=== PATIENT | female | born 1960 | race Caucasian/White ===

== ENCOUNTER 2022-04-18 14:09 | Outpatient (CLI) | payer OTHER, SELFPAY ==
[2022-04-18 11:18] LABS: Chloride* 101 mmol/L (96-114)
[2022-04-18 11:19] LABS: Albumin* 4.7 g/dL (3.3-5.0)
[2022-04-18 11:20] LABS: Sodium* 140 mmol/L (135-149)
[2022-04-18 11:22] LABS: Alkaline Phosphatase* 100 U/L (40-150); Aspartate Amino Transferase* 32 U/L (12-35); Bilirubin Total* 0.5 mg/dL (0.1-1.5); Blood Urea Nitrogen* 34 mg/dL (7-30); Carbon Dioxide* 27 mmol/L (20-32); Cholesterol* 212 mg/dL (90-199); Creatinine* 1.8 mg/dL (0.5-1.5); Estimated Glomerular Filt Rate 32 ml/min; Total Protein* 7.5 g/dL (6.0-8.3)
[2022-04-18 11:23] LABS: Alanine Aminotransferase* 46 U/L (4-35); Calcium* 9.3 mg/dL (8.4-10.6); Glucose* 200 mg/dL (60-115); HDL Cholesterol* 36 mg/dL (>=50); LDL Cholesterol Calculated 122 mg/dL (<100); Triglycerides* 269 mg/dL (40-149)
[2022-04-18 11:31] LABS: Microalbumin Urine 7 mg/dL
[2022-04-18 11:35] LABS: Creatinine Urine 201.7 mg/dL; Microalbumin Creatinine Ratio 30 mg/g (0-30)
[2022-04-18 12:32] LABS: Potassium* 5.5 mmol/L (3.6-5.1)
== END 2022-04-18 14:10 | disposition home or self-care (01) ==
PROVIDERS: Visit Provider Internal Medicine
DX: E11.9 Type 2 diabetes mellitus without complications (principal)
CPT/HCPCS: 80053; 80061; 82043; 82570

== ENCOUNTER 2022-06-14 08:20 | Outpatient (CLI) | payer OTHER, SELFPAY ==
[2022-06-14 09:50] LABS: Albumin* 4.4 g/dL (3.3-5.0); Chloride* 103 mmol/L (96-114); Potassium* 5.5 mmol/L (3.6-5.1); Sodium* 139 mmol/L (135-149)
[2022-06-14 09:53] LABS: Blood Urea Nitrogen* 30 mg/dL (7-30); Carbon Dioxide* 23 mmol/L (20-32); Creatinine* 1.5 mg/dL (0.5-1.5); Estimated Glomerular Filt Rate 39 ml/min; Glucose* 183 mg/dL (60-115)
[2022-06-14 09:54] LABS: Calcium* 9.3 mg/dL (8.4-10.6); Uric Acid* 6.6 mg/dL (2.2-8.4)
[2022-06-14 10:06] LABS: Creatinine Urine 94.8 mg/dL
[2022-06-14 10:10] LABS: Microalbumin Creatinine Ratio 40 mg/g (0-30); Microalbumin Urine 4 mg/dL
[2022-06-16 03:03] LABS: Iron* 94 ug/dL (37-170)
[2022-06-16 03:12] LABS: Percent Iron Saturation 27 % (20-50); Total Iron Binding Capacity 353 ug/dL (265-497)
[2022-06-16 03:38] LABS: Ferritin* 19.8 ng/mL (11.1-264.0)
== END 2022-06-14 08:21 | disposition home or self-care (01) ==
PROVIDERS: PCP Internal Medicine; Visit Provider Internal Medicine Nephrology
DX: E11.29 Type 2 diabetes mellitus with other diabetic kidney complication (principal); I10 Essential (primary) hypertension; N18.30 Chronic kidney disease, stage 3 unspecified; R80.9 Proteinuria, unspecified; E78.5 Hyperlipidemia, unspecified
CPT/HCPCS: 80069; 82043; 82310; 82570; 82728; 83540; 83550; 83970; 84550; 87086

== ENCOUNTER 2022-06-28 07:01 | Outpatient (CLI) | payer OTHER, SELFPAY ==
--- NOTE | 2022-06-28 08:48 | W.ANESCHARGE ---
Anesthesia Charges Start Date/Time Anesthesia Start Date: 06/28/22 Anesthesia Start Time: 08:05 Stop Date/Time Anesthesia Stop Date: 06/28/22 Anesthesia Stop Time: 08:45
--- NOTE | 2022-06-28 09:15 | W.ANESCHARGE ---
Anesthesia Charges Start Date/Time Anesthesia Start Date: 06/28/22 Anesthesia Start Time: 08:05 Stop Date/Time Anesthesia Stop Date: 06/28/22 Anesthesia Stop Time: 08:45
== END 2022-06-28 07:02 | disposition home or self-care (01) ==
LOC: OP CLINIC 07:02
PROVIDERS: PCP Internal Medicine; Visit Provider Surgery
DX: Z12.11 Encounter for screening for malignant neoplasm of colon (principal); K63.5 Polyp of colon; K57.30 Diverticulosis of large intestine without perforation or abscess without bleeding; Z86.010 Personal history of colon polyps
CPT/HCPCS: 00811; 45380; 45385; 88305; J2704

== ENCOUNTER 2022-07-19 09:04 | Outpatient (CLI) | payer OTHER, SELFPAY ==
--- NOTE | 2022-07-19 09:15 | CRLHL7_ITS ---
For Patients: As a result of the Century Cures Act, medical imaging exams and procedure reports are released immediately into your electronic medical record. You may view this report before your referring provider. If you have questions, please contact your health care provider. BILATERAL SCREENING MAMMOGRAM WITH COMPUTER-AIDED DETECTION AND TOMOSYNTHESIS TECHNIQUE: CC and MLO views were obtained. These mammographic images have been obtained using full-field digital technique. These mammographic images were interpreted with the benefit of computer-aided detection. Breast Tomosynthesis was used in this interpretation. COMPARISON FILM: 07/13/2021, 06/16/2020, 06/05/2019. FINDINGS: There are scattered areas of fibroglandular density IMPRESSION: There is no radiographic evidence for malignancy. ASSESSMENT: BI-RADS Category 1: Negative RECOMMENDATION: Routine screening mammogram in 1 year. A lay language report of this examination will be provided to the patient. Rubin Lui M.D. Diagnostic Radiologist [email or web address] MAYCO/dora Transcribed: 1:53 p.melissa john/Dictated by: Rubin Lui MD @ 07/19/2022 10:11:00 AM (Electronically Signed)
== END 2022-07-19 09:05 | disposition home or self-care (01) ==
LOC: MAMMO 09:05
PROVIDERS: PCP Internal Medicine; Visit Provider Internal Medicine
DX: Z12.31 Encounter for screening mammogram for malignant neoplasm of breast (principal)
CPT/HCPCS: 77063; 77067

== ENCOUNTER 2023-01-10 08:35 | Outpatient (CLI) | payer OTHER, SELFPAY | END 2023-01-10 08:36 | disposition home or self-care (01) | LOC: NFLDREF 01-12 12:45 | PROVIDERS: PCP Internal Medicine; Referring Provider Internal Medicine; Visit Provider Internal Medicine Nephrology | DX: E11.9 Type 2 diabetes mellitus without complications (principal); E78.5 Hyperlipidemia, unspecified; I10 Essential (primary) hypertension; N18.30 Chronic kidney disease, stage 3 unspecified; R80.9 Proteinuria, unspecified | CPT/HCPCS: 80061; 80069; 82043; 82570; 82728; 83540; 83550; 84450; 84460; 84550; 87086 ==

== ENCOUNTER 2023-01-17 08:56 | Outpatient (CLI) | payer OTHER, SELFPAY | END 2023-01-17 08:57 | disposition home or self-care (01) | PROVIDERS: PCP Internal Medicine; Visit Provider Internal Medicine Nephrology | DX: N18.30 Chronic kidney disease, stage 3 unspecified (principal) | CPT/HCPCS: 84443 ==

== ENCOUNTER 2023-03-22 13:00 | Outpatient (RCR) | payer OTHER, SELFPAY | END 2023-06-07 15:40 | disposition home or self-care (01) | PROVIDERS: PCP Internal Medicine; Visit Provider Family Medicine | DX: M76.60 Achilles tendinitis, unspecified leg (principal); Z51.89 Encounter for other specified aftercare | CPT/HCPCS: 97035; 97110; 97140; 97161 ==

== ENCOUNTER 2023-04-25 08:05 | Outpatient (CLI) | payer OTHER, SELFPAY | END 2023-04-25 08:06 | disposition home or self-care (01) | LOC: NFLDREF 13:11 | PROVIDERS: PCP Internal Medicine; Referring Provider Internal Medicine; Visit Provider Internal Medicine | DX: E11.9 Type 2 diabetes mellitus without complications (principal); N18.30 Chronic kidney disease, stage 3 unspecified; E78.5 Hyperlipidemia, unspecified | CPT/HCPCS: 80053; 80061 ==

== ENCOUNTER 2023-07-25 08:15 | Outpatient (CLI) | payer OTHER, SELFPAY | END 2023-07-25 08:16 | disposition home or self-care (01) | LOC: NFLDREF 08-07 07:15 | PROVIDERS: PCP Internal Medicine; Referring Provider Internal Medicine; Visit Provider Internal Medicine Nephrology | DX: E11.9 Type 2 diabetes mellitus without complications (principal); I10 Essential (primary) hypertension; N18.30 Chronic kidney disease, stage 3 unspecified; R80.9 Proteinuria, unspecified | CPT/HCPCS: 80069; 82043; 82570; 82728; 83540; 83550; 84550; 87086; 87186 ==

== ENCOUNTER 2023-07-25 08:27 | Outpatient (CLI) | payer OTHER, SELFPAY ==
--- NOTE | 2023-07-25 09:15 | MM_ITS ---
Patient: XOCHITL RHOADES Facility:?[facility] Patient ID:?[id number] Site Patient ID:?[id number]. Site :?[id number] Study:?XRay-Breast Bilateral 3D W/CAD-07/25/2023 8:57:09 AM Ordering Physician:Radha Dior Final Report: BILATERAL SCREENING MAMMOGRAM WITH COMPUTER-AIDED DETECTION AND TOMOSYNTHESIS TECHNIQUE: CC and MLO views were obtained. These mammographic images have been obtained using full-field digital technique. These mammographic images were interpreted with the benefit of computer-aided detection. Breast Tomosynthesis was used in this interpretation. COMPARISON FILM: 07/19/22, 07/13/21, 06/16/20. FINDINGS: There are scattered areas of fibroglandular density IMPRESSION: There is no radiographic evidence for malignancy. ASSESSMENT: BI-RADS Category 2: Benign RECOMMENDATION: Routine screening mammogram in 1 year. A lay language report of this examination will be provided to the patient. Rubin Lui M.D. Diagnostic Radiologist [email or web address] MAYCO/johnnie / be/Dictated by: Rubin Lui MD @ 07/25/2023 11:23:00 AM Signed by:?Rubin Lui MD @07/25/2023 4:21:08 PM (Electronic Signature)
== END 2023-07-25 08:28 | disposition home or self-care (01) ==
LOC: MAMMO 08:27
PROVIDERS: PCP Internal Medicine; Visit Provider Internal Medicine
DX: Z12.31 Encounter for screening mammogram for malignant neoplasm of breast (principal)
CPT/HCPCS: 77063; 77067

== ENCOUNTER 2023-09-26 08:35 | Outpatient (CLI) | payer OTHER, SELFPAY ==
--- OUTSIDE RECORDS SUMMARY | 2023-09-27 07:04 | XMS_ITS | Encounter Summary ---
Author Name Unknown Organization [facility] Address [address] [place] [address] Care Team Providers Care Assistant Principal Name Role Phone Unavailable Primary Care Provider Unavailabl e Reason for Visit * Appointment Request (Routine) - Closed Specialty Diagnoses / Procedures Referred By Mark griffith Referred To Contact Nephrology and Hypertension Referral ID Status Reason Start Date Expiration Date Visits Re quested Visits Authorized [id number] Closed 06/29/2023 06/28/2024 1 1 Encounter Details Date Type Department Care Team (Latest Contact Info) Description 07/31/2023 2:30 PM CDT External Outreach Division of Nephrology and Hypertension in [place], [place] [address] [place] [address] Shiva Ray Jr., D.O. [address] [place] [address] Chronic Kidney Disease (CKD), Stage 3b Glomerular Filtration Rate (GFR) 30 To 44 (HCC) (Primary Dx); Hypertension Secondary To Endocrine Disorders; Diabetes Mellitus Type 2 (HCC); Hyperaldosteronism Primary (HCC); Hyperkalemia Social History Tobacco Use Types Packs/Day Years Used Date Smoking Tobacco: Never Smokeless Tobacco: Never Humiliation, Afraid, Rape, and Kick questionnair e Answer Date Recorded Within the last year, have y ou been afraid of your partner or ex-partner? Patient declined 07/21/2021 Within the last year, have y ou been humiliated or emotionally abused in other ways by your partner or ex-partner? Patient declined 07/21/2021 Within the last year, have y ou been kicked, hit, slapped, or otherwise physically hurt by your partner or ex-partner? Patient declined 07/21/2021 Within the last year, have y ou been raped or forced to have any kind of sexual activity by your partner or ex-partner? Patient declined 07/21/2021 Social Connection and Isolat ion Panel [NHANES] Answer Date Recorded In a typical week, how many times do you talk on the phone with family, friends, or neighbors? Twice a week 07/21/2021 How often do you get togethe r with friends or relatives? Twice a week 07/21/2021 How often do you attend chur or yazdanism services? More than 4 times per year 07/21/2021 Do you belong to any clubs o r organizations such as rastafarian groups, unions, fraternal or athletic groups, or school groups? No 07/21/2021 How often do you attend meet ings of the clubs or organizations you belong to? Patient declined 07/21/2021 Are you , , di vorced, , never , or living with a partner? 07/21/2021 AUDIT-C Answer Date Recorded Q1: How often do you have a drink containing alc ohol? Never 07/21/2021 Average Number of Drinks Not on file 022 Frequency of Binge Drinking Not on file 01/2022 Overall Financial Resource Strain (CARDIA) Answe r Date Recorded How hard is it for you to pa y for the very basics like food, housing, medical care, and heating? Not hard at all 07/21/2021 [facility] of Occupat ional Health - Occupational Stress Questionnaire Answer Date Recorded Do you feel stress - tense, restless, nervous, or anxious, or unable to sleep at night because your mind is troubled all the time - these days? Not at all 07/21/2021 Exercise Vital Sign Answer Date Recorde d On average, how many days pe r week do you engage in moderate to strenuous exercise (like a brisk walk)? Patient declined On average, how many minutes do you engage in exercise at this level? Patient declined 07/21/2021 Hunger Vital Sign Answer Date Recorded Within the past 12 months, y ou worried that your food would run out before you got the money to buy more. Patient declined Within the past 12 months, t he food you bought just didn't last and you didn't have money to get more. Patient declined 01/2022 PRAPARE - Transportation Answer Date Re corded In the past 12 months, has l ack of transportation kept you from medical appointments or from getting medications? Patient declined 07/21/2021 In the past 12 months, has l ack of transportation kept you from meetings, work, or from getting things needed for daily living? Patient declined 07/21/2021 Housing Stability Vital Sign Answer Evans e Recorded In the last 12 months, was t here a time when you were not able to pay the mortgage or rent on time? No 07/21/2021 In the last 12 months, how many places have you lived? 1 07/21/2021 In the last 12 months, was t here a time when you did not have a steady place to sleep or slept in a care home (including now)? No 07/21/2021 Nutrition Answer Date Recorded Nutrition: EVOO Fat Source Yes 07/21 On average, how many serving s of fruits and vegetables do you eat per day (serving size is equal to 1 cup or approximately the size of a tennis ball)? 4-5 07/21/2021 Dental Answer Date Recorded Dental: Regular Dentist Yes 07/22/19 Employment Answer Date Recorded Employment status Employed and actively working without restrictions 07/21/2021 Education Answer Date Recorded What is the highest level of school you have completed or the highest degree you have received? Associate degree: occupational, technical, or vocational program 07/21/2021 Sex and Gender Information Value Date Recorded Sex Assigned at Female 07/21/2021 8:23 PM [employer]NAGER COUN[employer] Gender Identity Female 10/12/2017 1:06 PM CDT Sexual Orientation Straight 10/12/2017 1: 10 PM CDT documented as of this encounter Last Filed Vital Signs Vital Sign Reading Time Taken Comments Blood Pressure 136/78 07/31/2023 2:30 PM CDT Pulse 71 07/31/2023 2:30 PM CDT Temperature - - Respiratory Rate - - Oxygen Saturation - - Inhaled Oxygen Concentration - - Weight 94.5 kg (208 lb 5.4 oz) 07/31/2023 2:30 P M CDT Height 162.5 cm (5' 3.98) 07/31/2023 2:30 PM CD T Body Mass Index 35.79 07/31/2023 2:30 PM CDT documented in this encounter Progress Notes * Shiva Ray Jr., DDeandra - 07/31/2023 2:30 PM CDT Referring Provider: DR Hancock SUBJECTIVE REASON FOR VISIT [facility] Follow-up regards hyperaldosteronism with resistant hypertension, diabetes mellitus type 2 CKD stage 3B HISTORY OF PRESENT ILLNESS Ms. Ambrosio is a 63 y.o. female who presents with CKD stage IIIb on the background of resistant hypertension, secondary to hyperaldosteronism, always well as diabetes mellitus, with an abnormal microalbumin to creatinine ratio. She feels well although went through a very rough late winter time frame in May when she suffered with proven influenza A. She required corticosteroids. [facility] and has not been taking her Januvia. As result her hemoglobin A1c is up to 8.9%. She has a bit of numbness in her left foot on the sole of her foot, no visual changes, no urgency frequency dysuria. Her blood pressures at home have been excellent, on average in the 120s over 70s without orthostatic issues no lower extremity swelling. Her potassium has been normal she follows a low-potassium diet, we will utilize spironolactone to control her blood pressure. We had discussed in the past comprehensive endocrine workup including adrenal vein sampling and she is elected to hold off, and we have done well. Past Medical History: Diagnosis Date Diabetes Mellitus NOS Hypertension NOS Malignant Neoplasm Of Skin Squamous Cell Carcinoma Melanoma Skin (HCC) Current Outpatient Medications: albuterol (PROVENTIL HFA,VENTOLIN HFA) 90 mcg/actuation inhaler, Inhale 1 puff as needed., Disp: , Rfl: aspirin [address] tablet, Take 81 mg by mouth daily., Disp: , Rfl: CALCIUM ORAL, Take 2 tablets by mouth daily., Disp: , Rfl: cranberry fruit extract (CRANBERRY ORAL), Take 1 capsule by mouth daily., Disp: , Rfl: dilTIAZem CD (CARDIZEM CD) 240 mg 24 hr capsule, Take 1 capsule by mouth daily., Disp: , Rfl: losartan-hydroCHLOROthiazide (HYZAAR) 100-12.5 mg per tablet, , Disp: , Rfl: 0 metFORMIN (GLUCOPHAGE) 1,000 mg tablet, Take 1 tablet by mouth 2 (two) times a day., Disp: , Rfl: metoprolol succinate (TOPROL-XL) 25 mg 24 hr tablet, Take 1 tablet (25 mg total) by mouth daily., Disp: 90 tablet, Rfl: 3 MULTIVITAMIN ORAL, Take 1 tablet by mouth daily., Disp: , Rfl: predniSONE (DELTASONE) 20 mg tablet, TAKE 2 TABLETS BY MOUTH EVERY DAY FOR 5 DAYS THEN ONE TABLET FOR 5 DAYS THEN, ONE-HALF TABLET FOR 5 DAYS, Disp: , Rfl: 0 simvastatin (ZOCOR) 40 mg tablet, , Disp: , Rfl: 2 spironolactone (ALDACTONE) 25 mg tablet, , Disp: , Rfl: REVIEW OF SYSTEMS All other systems reviewed and are negative. OBJECTIVE BP 136/78 Pulse 71 Ht 162.5 cm Wt 94.5 kg BMI 35.79 kg/m?? PHYSICAL EXAMINATION General: Awake alert oriented HEENT: SHARON, EOMI, Mucous membranes moist, no oral lesions Neck: No Masses, No Bruits Lungs: Clear to ascultation Heart: Regular Rate and Rhythm, No ectopy Murmurs or rubs Abdomen: Soft, Non-tender Extremities: No cyanosis, No clubbing: No edema Neuro: Cranial Nerves intact, Gait is normal, strength grossly normal Skin: no suspicious lesions identified Psychiatric: Normal affect DIAGNOSTICS Note creatinine 1.5 mg/dL, microalbumin to creatinine ratio 50 milligrams/gram, hemoglobin A1c 8.9%normal CBC ASSESSMENT / PLAN #1 Chronic Kidney Disease (CKD), Stage 3b Glomerular Filtration Rate (GFR) 30 To 44 (HCC) She has been doing overall well, her blood pressure is excellent. If she is trending on average below 110 systolic we could begin to entertain cutting back on her antihypertensive regimen. I expect this will occur over time. Going forward: 1. Goal blood pressure less than 130/80-achieved 2. If her pressures are routinely below 110 systolic or she is symptomatic I would favor cutting back or stopping her diltiazem 3. We will continue her spironolactone 4. Low-sodium diet 5. Continue to stay as active as possible 6. Goal glycosylated hemoglobin level of 6.5-7.5%, she is dramatically above this level, perhaps onthe background of her corticosteroid use. #2 Hypertension Secondary To Endocrine Disorders Please see above, we will continue on spironolactone and combination Pepe diuretic therapy, along with beta blockade and calcium channel blockade. #3 Diabetes Mellitus Type 2 (HCC) She is well above target with a hemoglobin A1c that is likely impacted by her previous corticosteroid use and that she is currently using glipizide and metformin alone. She could be a candidate for a GLP 1 agonist, or perhaps an SG LT 2 inhibitor, but if her current insurance will not allow Januvia, this would be a challenge financially I suspect. #4 Hyperaldosteronism Primary (HCC) Please see above discussion #5 Hyperkalemia Stable with a potassium of 5.1 Total time: 35 minutes Counseling Time: 25 minutes Shiva Ray Jr., D.O. documented in this encounter Plan of Treatment Not on file documented as of this encounter Visit Diagnoses Diagnosis Chronic Kidney Disease (CKD), Stage 3b Glomerular Filtration Rate (GFR) 30 To 44 (HCC)- Primary Hypertension Secondary To Endocrine Disorders Diabetes Mellitus Type 2 (HCC) Hyperaldosteronism Primary (HCC) Hyperkalemia documented in this encounter
--- OUTSIDE RECORDS SUMMARY | 2023-09-27 07:04 | XMS_ITS | Encounter Summary ---
Author Name Unknown Organization [facility] Address [address] [place] [address] Care Team Providers Care Golf Teacher Name Role Phone Unavailable Primary Care Provider Unavailabl e Encounter Details Date Type Department Care Team (Late st Contact Info) Description 09/25/2023 2:35 PM CDT Ancillary Procedure Department of Dermatology Arrived Social History Tobacco Use Types Packs/Day Years Used Date Smoking Tobacco: Never Smokeless Tobacco: Never Alcohol Use Standard Drinks/Week Comments Not Currently 0 (1 standard drink = 0.6 oz pur e alcohol) [facility] Utilities Answer Date Recorded In the past [address] [facility] [employer], gas, oil, or water [employer] threatened to shut off services in your home? No 09/18/2023 Humiliation, Afraid, Rape, and Kick questionnair e [...] How often do you attend chur or uatsdin services? More than 4 times per year 07/21/2021 Do you belong to any clubs o r organizations such as oriental orthodox groups, unions, fraternal or athletic groups, or [...] and heating? Not hard at all 07/21/2021 [facility] of Occupat ional Health - Occupational Stress [...] to strenuous exercise (like a brisk walk)? 3 days 09/18/2023 On average, how many minutes do you engage in exercise at this level? 30 min 09/18/2023 Hunger Vital Sign Answer Date Recorded Within the past 12 months, y ou worried that your food would run out before you got the money to buy more. Patient declined Within the past 12 months, t he food you bought just didn't last and you didn't have money to get more. Patient declined 10/2023 PRAPARE - Transportation Answer Date Re corded In the past 12 months, has l ack of transportation kept you from medical appointments or from getting medications? Patient declined 09/18/2023 In the past 12 months, has l ack of transportation kept you from meetings, work, or from getting things needed for daily living? Patient declined 09/18/2023 Nutrition Answer Date Recorded On average, how many serving s of fruits and vegetables do you eat per day (serving size is equal to 1 cup or approximately the size of a tennis ball)? 5 or more 09/18/2023 Dental Answer Date Recorded Dental: Regular Dentist Yes 07/22/19 Employment Answer Date Recorded Employment status Employed and actively working without restrictions 09/18/2023 Housing Stability Answer Date Recorded What is your living situation today? I have a [facility] place to live 09/18/2023 Education Answer Date Recorded What is the highest level of school you have completed or the highest degree you have received? Associate degree: occupational, technical, or vocational program 07/21/2021 Sex and Gender Information Value Date Recorded Sex Assigned at Female 07/21/2021 8:23 PM [employer]OCK [employer] Gender Identity Female 10/12/2017 1:06 PM CDT Sexual Orientation Straight 10/12/2017 1: 10 PM CDT documented as of this encounter Plan of Treatment Not on file documented as of this encounter Procedures Procedure Name Priority Date/Time Associated Diagnosis Comments DERMATOLOGY IMAGE EXAM Routine 09/25/2023 2:28 PM CDT documented in this encounter Results * forehead, right 8-Dermatology Image Exam (09/25/2023 2:28 PM CDT) 09/25/2023 2:26 PM CDT Narrative [facility] - 09/25/2023 2:28 PM CDT This order has been created and auto-finalized to support the import of images acquired without order. The clinical documentation to support these images can be found on the encounter that produced images. Provider Not In System IMG NON RAD IMAGI NG PROCEDURES [facility] NA documented in this encounter Visit Diagnoses Not on filedocumented in this encounter
--- OUTSIDE RECORDS SUMMARY | 2023-09-27 07:04 | XMS_ITS | Encounter Summary ---
Author Name Unknown Organization [facility] Address [address] [place] [address] Care Team Providers Care Mattress Finisher Name Role Phone Unavailable Primary Care Provider Unavailabl e Encounter Details Date Type Department Care Team (Late st Contact Info) Description 09/25/2023 2:25 PM CDT Ancillary Procedure Department of Dermatology Arrived Social History Tobacco Use Types Packs/Day Years Used Date Smoking Tobacco: Never Smokeless Tobacco: Never Alcohol Use Standard Drinks/Week Comments Not Currently 0 (1 standard drink = 0.6 oz pur e alcohol) [facility] Utilities Answer Date Recorded In the past 12 months has [facility] [employer], gas, oil, or water [employer] threatened to shut off services in your [...] How often do you attend chur or pentecostal services? More than 4 times per year 07/21/2021 Do you belong to any clubs o r organizations such as orthodox groups, unions, fraternal or athletic groups, [...] and heating? Not hard at all 07/21/2021 [facility] Occupat ional Health - Occupational [...] your living situation today? I have a [facility] place to live 09/18/2023 Education Answer Date Recorded What is the highest level of school you have completed or the highest degree you have received? Associate degree: occupational, technical, or vocational program 07/21/2021 Sex and Gender Information Value Date Recorded Sex Assigned at Female 07/21/2021 8:23 PM [employer] LEADER Gender Identity Female 10/12/2017 1:06 PM CDT Sexual Orientation Straight 10/12/2017 1: 10 PM CDT documented as of this encounter Plan of Treatment Not on file documented as of this encounter Procedures Procedure Name Priority Date/Time Associated Diagnosis Comments DERMATOLOGY IMAGE EXAM Routine 09/25/2023 2:25 PM CDT documented in this encounter Results * Back, right 50 224 226 228-Dermatology Image Exam (09/25/2023 2:25 PM CDT) 09/25/2023 2:25 PM CDT Narrative [facility] - 09/25/2023 2:27 PM CDT This order has been created [...]
--- OUTSIDE RECORDS SUMMARY | 2023-09-27 07:04 | XMS_ITS | Clinical Summary ---
Author Name Unknown Organization [facility] Address [address] [place] [address] Care Team Providers Care Residential Program Manager Name Role Phone Unavailable Primary Care Provider Unavailabl e Source Comments Patient records contain information from all sites at [facility]. For routine questions regarding patient records, call [phone] during business hours, M-F 8:00 AM - 5:00 PM Central Time. Record requests for emergency care only can be directed to [phone] at any time.[facility] Allergies Active Allergy Reactions Criticality Noted Date Comments Amlodipine Edema (Reselect Reaction) 12/23/2009 Nifedipine Edema (Reselect Reaction) 12/23/2009 Medications Medication Sig Dispensed Refills Start Date End Date Status albuterol (PROVENTIL HFA,VENTOLIN HFA) 90 mcg/actuation inhaler Inhale 1 puff as needed. 12/23/2009 Active dilTIAZem CD (CARDIZEM CD) 240 mg 24 hr capsule Take 1 capsule by mouth daily. 12/24/2009 Active CALCIUM ORAL Take 2 tablets by mouth daily. 12/24/2009 Active cranberry fruit extract (CRANBERRY ORAL) Take 1 capsule by mouth daily. 12/24/2009 Active metFORMIN (GLUCOPHAGE) 1,000 mg tablet Take 1 tablet by mouth 2 (two) times a day. 12/23/2009 Active MULTIVITAMIN ORAL Take 1 tablet by mouth daily. 12/24/2009 Active losartan-hydroCHL OROthiazide (HYZAAR) 100-25 mg per tablet 1 tablet daily. 0 08/30/2017 Active spironolactone (ALDACTONE) 25 mg tablet 07/26/2017 Active metoprolol succinate (TOPROL-XL) 25 mg 24 hr tablet Take 1 tablet (25 mg total) by mouth daily. 90 tablet 3 06/11/2019 Active pravastatin (PRAVACHOL) 80 mg tablet Take 80 mg by mouth daily. Active loratadine (CLARITIN) 10 mg tablet Take 10 mg by mouth daily. Active glipiZIDE (GLUCOTROL) 10 mg tablet Take 10 mg by mouth every morning before breakfast. Active ferrous sulfate 27 mg iron tablet Take by mouth. Act fabiola aspirin [address] tablet Take 81 mg by mouth daily. 09/25/2023 Discontinued (Therapy completed) predniSONE (DELTASONE) 20 mg tablet TAKE 2 TABLETS BY MOUTH EVERY DAY FOR 5 DAYS THEN ONE TABLET FOR 5 DAYS THEN, ONE-HALF TABLET FOR 5 DAYS 0 08/10/2017 09/25/2023 Discontinued (Therapy completed) simvastatin (ZOCOR) 40 mg tablet 2 09/06/2017 09/25/2023 Discontinued (Alternate therapy) Active Problems Problem Noted Date Diagnosed Date Hyperkalemia 06/21/2022 Anemia Iron Deficiency 02/17/2021 Chronic Kidney Disease (CKD) , Stage 3b Glomerular Filtration Rate (GFR) 30 To 44 04/11/2018 Diabetes Mellitus Type 2 05/04/2016 Hyperaldosteronism Primary 05/05/2015 Resolved Problems Problem Noted Date Diagnosed Date Resolved Date Hypertension Secondary To Endocrine Disorders 09/20/19 18 07/31/2023 Elevated Aldosterone Level 05/05/2015 0 01/17/2023 Encounters Date Type Department Care Team Description 09/25/2023 2:35 PM CDT Ancillary Procedure Department of Dermatology Arrived 09/25/2023 2:30 PM CDT Ancillary Procedure Department of Dermatology Arrived 09/25/2023 2:25 PM CDT Ancillary Procedure Department of Dermatology Arrived 09/25/2023 1:45 PM CDT Office Visit Department of Dermatology in [address] [phone] Bela Owen M.D. Nevi Multiple (Primary Dx); Keratosis Seborrheic; Melanoma Personal History 07/31/2023 2:30 PM CDT External Outreach Division of Nephrology and Hypertension in [place] [address] [place] [address] Shiva Ray Jr., D.O. Chronic Kidney Disease (CKD), Stage 3b Glomerular Filtration Rate (GFR) 30 To 44 (HCC) (Primary Dx); Hypertension Secondary To Endocrine Disorders; Diabetes Mellitus Type 2 (HCC); Hyperaldosteronism Primary (HCC); Hyperkalemia from Last 3 Months Social History Tobacco Use Types Packs/Day Years Used Date Smoking Tobacco: Never Smokeless Tobacco: Never Tobacco Cessation:Counseling Given: Not Answered Alcohol Use Standard Drinks/Week Comments Not Currently 0 (1 standard drink = 0.6 oz pur e alcohol) [facility] [employer] Answer Date Recorded In the past 12 months has e [employer], gas, oil, or water [employer] threatened to shut off services in your [...] 07/21/2021 How often do you attend chur ch or holiness services? More than 4 times per year 07/21/2021 Do you belong to any clubs o r organizations such as christian groups, unions, fraternal or athletic groups, or [...] and heating? Not hard at all 07/21/2021 [facility] - Occupational Stress [...] your living situation today? [facility] 09/18/2023 Education Answer Date Recorded What is the highest level of school you have completed or the highest degree you have received? 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 Oxygen Saturation - - Inhaled Oxygen Concentration - - Weight 94.5 kg (208 lb 5.4 oz) 07/31/2023 2:30 PM CDT Height 162.5 cm (5' 3.98) 07/31/2023 2 :30 PM CDT Body Mass Index 35.79 07/31/2023 2:30 PM CDT Plan of Treatment Health Maintenance Due Date Last Done Comments CT Colonography 1961 Cologuard 1961 Creatinine Level (Kidney Fun ction Test) 1961 Diabetic Office Visit with F oot Exam 1961 Dilated Eye Exam 1961 FIT 1961 Hemoglobin A1C 1961 Hepatitis C Screening 1961 Lipid (Cholesterol) Screening 1961 Mammogram 1961 Potassium Level 1961 Sodium Level 1961 Urine Albumin 1961 Pneumococcal vaccine (0-64 y ears) (2 of 2 - PCV) 01/02/2019 01/02/2018, 02/11/2010 DTaP,Tdap,and Td Vaccines (2 - Td or Tdap) 02/15/2022 02/16/2012, 06/03/2002 Depression Screening (Annual PHQ-2) 05/15/2023 COVID-19 Vaccine ( - 2022-2 4 season) 2023 02/07/2023, 02/09/2022, 08/24/2021, Additional history exists Office Visit for Blood Press ure Check / Re-check 07/30/2024 07/31/2023 Colonoscopy 10/17/2026 10/17/2016 Colorectal Cancer Screening 10/17/2026 Hepatitis B Vaccines Completed 09/27/1999, 04/26/1999, 03/25/1999 Zoster Vaccines Completed 01/11/2019, 01/02/2018 Influenza Vaccine Completed 02/07/2023, , 02/10/2021, Additional history exists Medical Devices Implanted Type Area Sports Editor Device Identifier Shelf Expiration Date Model / Serial / Lot Knee Implant Knee Implant Right: Knee Procedures Procedure Name Priority Date/Time Associated Diagnosis Comments DERMATOLOGY IMAGE EXAM Routine 09/25/2023 2:28 PM CDT DERMATOLOGY IMAGE EXAM Routine 09/25/2023 2:28 PM CDT DERMATOLOGY IMAGE EXAM Routine 09/25/2023 2:25 PM CDT from Last 3 Months Results * forehead, right 8-Dermatology Image Exam (09/25/2023 2:28 PM CDT) Only the most recent of3 resultswithin the time period is included. 09/25/2023 2:26 PM CDT Narrative IIMS - 09/25/2023 2:28 PM CDT This order has been created and auto-finalized to support the import of images acquired without order. The clinical documentation to support these images can be found on the encounter that produced images. Provider Not In System IMG NON RAD IMAGI NG PROCEDURES IIMS NA from Last 3 Months
--- OUTSIDE RECORDS SUMMARY | 2023-09-27 07:04 | XMS_ITS | Clinical Summary ---
Author Name Unknown Organization [facility] Address [place], [place] [address] Care Team Providers Care Customer Engagement Manager Name Role Phone Radha Looney MD Primary Care Provider [phone] Allergies Active Allergy Reactions Criticality Noted Date Comments Nifedipine 11/01/2006 intolerance; pedal edema Amlodipine Edema 10/01/2008 Medications Medication Sig Dispensed Refills Start Date End Date Status MULTIVITAMIN TAB take 1 tablet by oral route once daily with food 0 08/04/2008 Active MICROLET LANCETIndications:Di abetes mellitus type II test 3 times daily 300 2 10/02/2008 Active CALCIUM 500 MG TAB 2 tablets daily 0 11/26/2008 A ctive ASPIRIN 325 MG TAB, DELAYED RELEASE Once daily 0 01/07/2009 Active metformin (GLUCOPHAGE) 1,000 mg tabletIndications:Di abetes mellitus type II Take 1 tablet by mouth 2 times daily with meals. 180 tablet 3 12/15/2009 Active metoprolol SR (TOPROL XL) 50 mg XL tabletIndications:Un specified essential hypertension Take 1 tablet by mouth once daily. 90 tablet 3 12/15/2009 Active simvastatin (ZOCOR) 20 mg tabletIndications:Mi xed hyperlipidemia Take 1 tablet by mouth at bedtime. 90 tablet 3 12/15/2009 Active albuterol (PROVENTIL; VENTOLIN) 90 mcg/Actuation inhalerIndications:M ild intermittent asthma Inhale 2 Puffs by mouth every 4 hours if needed for Wheezing. Please fill at patient's request. 1 Inhaler 1 12/15/2009 Active blood sugar diagnostic (ASCENSIA CONTOUR) stripIndications:Susu betes mellitus type II Dispense test strips covered by the patient insurance. Test one time per day. 1 Bottle 2 12/15/2009 Active vitamin D3-vitamin K2, MK4, 1,000-100 unit-mcg tab Take by mouth. 0 02/24/2016 Active meclizine (ANTIVERT) 25 mg tablet Take 1 tablet by mouth 3 times daily if needed. 0 02/24/2016 Active spironolactone (ALDACTONE) 25 mg tablet Take 1 tablet by mouth once daily. 0 02/24/2016 Active venlafaxine extended release (VENLAFAXINE XR, [facility],) 75 mg extended release tablet Take 1 tablet by mouth once daily with a meal. 0 02/24/2016 Active zolpidem (AMBIEN) 5 mg tablet Take 1 tablet by mouth at bedtime if needed for Sleep. 0 02/24/2016 Active losartan-hydrochloro thiazide (HYZAAR) 100-12.5 mg tablet Take 1 tablet by mouth once daily. 0 09/29/2016 Active polyethylene glycol-electrolyte (GOLYTELY) 236-22.74-6.74 -5.86 gram suspensionIndication s:Periumbilical abdominal pain Drink 3-7 quarts the day prior to colonoscopy (until no liquid or solid stool ) and 1 quart 6 hours prior to the colonoscopy 8000 mL 1 09/29/2016 Active pantoprazole (PROTONIX) 40 mg delayed-release tabletIndications:Dy sphagia, unspecified type,Gastroesophagea l reflux disease, esophagitis presence not specified,Chronic cough TAKE ONE TABLET BY MOUTH ONCE DAILY, TAKE 30-60 MINUTES BEFORE A MEAL/FOOD 90 tablet 3 04/24/2019 Active Active Problems Problem Noted Date Diagnosed Date Adenomatous polyp of transverse colon 10/20/2016 Overview: Colonoscopy 10/2016 polyp, additional biopsies normal, repeat in 5 years Gastroesophageal reflux disease without esophagi tis 04/05/2016 Overview: EGD 03/2016 normal, try pantoprazole Female stress incontinence 12/15/2009 Overview: Referred for Biofeedback 12/15/2009 Reportedly improved with therapy 07/06/2010 Routine general medical exam ination at a health care facility 12/15/2009 Melanoma of skin, site unspecified 09/24/2009 Overview: Left Arm; Wide Excision 10/13/2009 Dr Smith at [facility]. Onychomycosis 07/08/2009 Overview: Both big toenails involved: has not responded to Lamisil, special compounding Prescription, and she continues to use Tea Tree Oil. Hot flash 04/08/2009 Edema 10/01/2008 Diabetes mellitus type II 10/01/2008 Overview: a system change updated this record. This will not affect patient care or billing. This comment can be deleted. Unspecified hearing loss 10/01/2008 Overview: Left Mild intermittent asthma 10/01/2008 Unspecified essential hypertension 11/01/2006 Overview: Goal: <120/75 12/15/2009 Obesity, unspecified 11/01/2006 Hypopotassemia 11/01/2006 Mixed hyperlipidemia 11/01/2006 Immunizations Name Administration Dates Next Due Hepatitis A (Adult) 09/27/1999,03/25/1999 Hepatitis B (Adult) 09/27/1999,04/26/1999,1998 Influenza A (H1N1), Inactiva clifton (Age >=3 Years) 03/24/2009 Influenza, IIV3 (Age >=3 years) 02/05/2009,03/15 Td (Age >=7 Years) 06/03/2002 Family History * Patient is adopted Medical History Relation Name Comments Unknown Father Unknown Mother Relation Name Status Comments Father Mother Social History Tobacco Use Types Packs/Day Years Used Date Smoking Tobacco: Never Smokeless Tobacco: Never Tobacco Cessation:Counseling Given: Yes Alcohol Use Standard Drinks/Week Comments No 1.7 (1 standard drink = 0.6 oz p ure alcohol) Sex and Gender Information Value Date Recorded Sex Assigned at Not on file Gender Identity Not on file Sexual Orientation Straight 10/27/2021 2: 30 PM CDT Obstetrics History Para Term AB IAB SAB Ectopic Multiple Livin g Live Births 3 2 1 1 2 Date Outcome GA Total Labor Labor/2nd/3rd Weight Sex Delivery Anes PTL Helen A1 A5 Name Cl in Para Comments:Antoinette Para Comments:Prabhu SIDNEY Last Filed Vital Signs Vital Sign Reading Time Taken Comments Blood Pressure 127/85 09/29/2016 2:02 PM CDT Pulse 70 09/29/2016 2:02 PM CDT Temperature 36.8 ??C (98.2 ??F) 09/29/2016 2:02 PM CD T Respiratory Rate - - Oxygen Saturation 95% 09/29/2016 2:02 PM CDT Inhaled Oxygen Concentration - - Weight 104.7 kg (230 lb 14.4 oz) 09/29/2016 2:02 PM CDT Height 160.5 cm (5' 3.19) 09/29/2016 2:02 PM CD T Body Mass Index 40.66 09/29/2016 2:02 PM CDT Plan of Treatment Health Maintenance Due Date Last Done Comments Tdap 1972 Depression screening for age 12+ 1973 HIV for age 15-65 1976 Hepatitis C screening for age 18-79 1979 Pap test for age 21-65 1982 Mammogram for age 45-75 03/25/2010 03/25/20 09, 02/13/2008 (Completed outside of [facility]) Zoster (shingles) series for age 50+ (1 of 2) 2011 Tetanus booster 06/03/2012 06/03/2002 Lipids for age 45-75 12/09/2014 12/09/2009, 09/08/2009, 07/03/2009, Additional history exists BMI (ht and wt on same day) for age 18+ 09/29/2017 09/29/2016, 02/24/2016 Colonoscopy through age 75 10/17/202110/17, 10/17/2016, 10/17/2016 COVID-19 vaccine series (2022- season) 2023 Influenza for age 50-64 01/14/2024 03/24/20 09, 02/05/2009, 03/15/2008 Pneumococcal series for age 6-64 Aged Out No longer eligible based on patient's age to complete this topic Procedures Procedure Name Priority Date/Time Associated Diagnosis Comments COLONOSCOPY DIAGNOSTIC Routine 10/17/2016 12:00 AM CDT Periumbilical abdominal pain Abnormal CT of the abdomen Bloating LIPID PANEL W REFLEX MEASURED LDL Routine 12/09/2009 7:36 AM CDT HYPERLIPIDEMIA MIXED SCAN-MAMMOGRAPHY REPORT 03/25/2009 12:00 AM ANIMAL BOUNTY HUNTER from Last 3 Months or Most Recently Relevant to Health Maintenance Results * COLONOSCOPY DIAGNOSTIC (10/17/2016 12:00 AM CDT) Jeffery Burns MD GI PROCEDURE ORD * (ABNORMAL) LIPID PANEL W REFLEX MEASURED LDL (12/09/2009 7:36 AM CDT) CHOLESTEROL,TOTAL 155 110 - 199 mg/dL [facility] TRIGLYCERIDES 151(H) <150 mg/dL [facility] HDL CHOLESTEROL 42 >40 mg/dL [facility] CHOL/HDL RATIO 3.69 <4.51 [facility] LDL CHOLESTEROL 83 <131 mg/dL [facility] PATIENT STATUS Fasting [facility] Blood specimen (specimen) BLOOD SPECIMEN / Unknown 12/09/2009 7:36 AM CDT 12/09/2009 7:30 AM CDT Griish Lemus MD CHEMISTRY [facility] [address] [place] [address] * SCAN-MAMMOGRAPHY REPORT (03/25/2009 12:00 AM ANIMAL BOUNTY HUNTER) Anatomical Region Laterality Modality Other Narrative Procedure Note Scanner - 03/25/2009 12:00 AM ANIMAL BOUNTY HUNTER Scanner OTHER from Last 3 Months or Most Recently Relevant to Health Maintenance Care Teams Customer Engagement Manager Relationship Specialty Start Date End Date Radha Looney MD PCP - General Internal Medicine 04/26/11
--- OUTSIDE RECORDS SUMMARY | 2023-09-27 07:04 | XMS_ITS ---
Author Name Unknown Organization [facility] Address [address] [place] [address] Care Team Providers Care Delivery Table Operator Name Role Phone Unavailable Unavailable Unavailable Surgery Details Not on file Complications Check Surgery Details section. Procedure Estimated Blood Loss Check Surgery Details section. Procedure Findings Check Surgery Details section. Procedure Specimens Taken Check Surgery Details section.
--- OUTSIDE RECORDS SUMMARY | 2023-09-27 07:04 | XMS_ITS | Referral Summary ---
Author Name Unknown Organization [facility] Address [address] [place] [address] Care Team Providers Care Beater Boss Name Role Phone Unavailable Primary Care Provider Unavailabl e Source Comments Patient records contain information from all sites at [facility]. For routine questions regarding patient records, call [phone] during business hours, M-F 8:00 AM - 5:00 PM Central Time. Record requests for emergency care only can be directed to [phone] at any time.[facility] Encounters Date Type Department Care Team Description 09/25/2023 2:35 PM CDT Ancillary Procedure Department of Dermatology Arrived 09/25/2023 2:30 PM CDT Ancillary Procedure Department of Dermatology Arrived 09/25/2023 2:25 PM CDT Ancillary Procedure Department of Dermatology Arrived 09/25/2023 1:45 PM CDT Office Visit Department of Dermatology in [address] [phone] Bela Owen M.D. Nevi Multiple (Primary Dx); Keratosis Seborrheic; Melanoma Personal History 07/31/2023 2:30 PM CDT External Outreach Division of Nephrology and Hypertension in [place], [place] [address] [place] [address] Shiva Ray Jr., D.O. Chronic Kidney Disease (CKD), Stage 3b Glomerular Filtration Rate (GFR) 30 To 44 (HCC) (Primary Dx); Hypertension Secondary To Endocrine Disorders; Diabetes Mellitus Type 2 (HCC); Hyperaldosteronism Primary (HCC); Hyperkalemia from Last 3 Months Allergies Active Allergy Reactions Criticality Noted Date [...] 07/31/2023 Elevated Aldosterone Level 05/05/2015 0 01/17/2023 Social History Tobacco Use Types Packs/Day Years Used Date Smoking Tobacco: Never Smokeless Tobacco: Never Tobacco Cessation:Counseling Given: Not Answered Alcohol Use Standard Drinks/Week Comments Not Currently 0 (1 standard drink = 0.6 oz pur e alcohol) [facility] Utilities Answer Date Recorded In the past 12 months has e [employer], gas, oil, or water [employer] threatened to shut off services in your [...] often do you attend chur ch or scientology services? More than 4 times per year 07/21/2021 Do you belong to any clubs o r organizations such as bahai groups, unions, fraternal or athletic groups, or [...] and heating? Not hard at all 07/21/2021 [facility] - Occupational Stress [...] your living situation today? [facility] 09/18/2023 Education Answer Date Recorded What is the highest level of school you have completed or the highest degree you have received? 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
--- OUTSIDE RECORDS SUMMARY | 2023-09-27 07:04 | XMS_ITS | Encounter Summary ---
Author Name Unknown Organization [facility] Address [address] [place] [address] Care Team Providers Care Adjunct Professor Of [employer] History Name Role Phone Unavailable Primary Care Provider Unavailabl e Encounter Details Date Type Department Care Team (Late st Contact Info) Description 09/25/2023 2:30 PM CDT Ancillary Procedure Department of Dermatology Arrived Social History Tobacco Use Types Packs/Day Years Used Date Smoking Tobacco: Never Smokeless Tobacco: Never Alcohol Use Standard Drinks/Week Comments Not Currently 0 (1 standard drink = 0.6 oz pur e alcohol) [facility] Utilities Answer Date Recorded In the past 12 months has [facility] [employer], gas, oil, or water [employer] threatened to shut off services in your [...] any clubs o r organizations such as episcopalian groups, unions, fraternal or athletic groups, or [...] and heating? Not hard at all 07/21/2021 [facility] Occupat ional Health - Occupational [...] your living situation today? I have a [facility] place to live 09/18/2023 Education Answer Date Recorded What is the highest level of school you have completed or the highest degree you have received? 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
--- OUTSIDE RECORDS SUMMARY | 2023-09-27 07:04 | XMS_ITS | Encounter Summary ---
Author Name Unknown Organization [facility] Address [address] [place] [address] Care Team Providers Care Assembler Liquid Center Name Role Phone Unavailable Primary Care Provider Unavailabl e Reason for Referral * Outpatient (Routine) - Authorized Specialty Diagnoses / Procedures Referred By Mark griffith Referred To Contact Dermatology Bela Owen M.D. [address] [place] [address] [facility] Region Referral ID Status Reason Start Date Expiration Date V isits Requested Visits Authorized [id number] Authorized 09/25/2023 03/26/2025 1 1 Scheduling Instructions Recheck several nevi and alopecia consultation in 6 months. 45 minute visit Reason for Visit * Reason Comments Skin Check * Appointment Request (Routine) - Closed Specialty Diagnoses / Procedures Referred By Mark griffith Referred To Contact Dermatology Referral ID Status Reason Start Date Expiration Date Visits Re quested Visits Authorized [id number] Closed 03/30/2021 03/30/2022 1 1 Encounter Details Date Type Department Care Team ([facility] st Contact Info) Description 09/25/2023 1:45 PM CDT Office Visit Department of Dermatology in [address] [phone] Bela Owen M.D. [address] [place] [phone] Nevi Multiple (Primary Dx); Keratosis Seborrheic; Melanoma Personal History Social History Tobacco Use Types Packs/Day Years Used Date Smoking Tobacco: Never Smokeless Tobacco: Never Tobacco Cessation:Counseling Given: Not Answered Alcohol Use Standard Drinks/Week Comments Not Currently 0 (1 standard drink = 0.6 oz pur e alcohol) [facility] [employer] [place] Answer Date Recorded In the past 12 months has e [employer], [employer], oil, or water [employer] threatened to shut off services in your [...] How often do you attend chur or episcopalian services? More than 4 times per year 07/21/2021 Do you belong to any clubs o r organizations such as nondenominational groups, unions, fraternal or athletic groups, or [...] and heating? Not hard at all 07/21/2021 [facility] [place] of Occupat ional Health - Occupational Stress [...] your living situation today? I have a [facility] place to live 09/18/2023 Education Answer Date Recorded What is the highest level of school you have completed or the highest degree you have received? Associate degree: occupational, technical, or vocational program 07/21/2021 Sex and Gender Information Value Date Recorded Sex Assigned at Female 07/21/2021 8:23 PM JEWEL SUPERVISOR Gender Identity Female 10/12/2017 1:06 PM CDT Sexual Orientation Straight 10/12/2017 1: 10 PM CDT documented as of this encounter Progress Notes * Bela Owen M.D. - 09/25/2023 1:45 PM CDT SUBJECTIVE CHIEF COMPLAINT / REASON FOR VISIT Melanoma recheck HISTORY OF PRESENT ILLNESS Debbie Ambrosio is a pleasant 63 y.o. female who presents for a melanoma recheck. The patient was last seen by me in Dermatology clinic in 2018. She has since been followed by a traffic maintenance officer [facility]. She has a history of malignant melanoma, Breslow Depth 0.9 mm, status post wide local excision in October 2009 at [facility]. Negative axillary lymph nodes. She also has a history of malignant melanoma in situ, status post wide local excision October 2009 at [facility]. She has a history of severely atypical nevi x 2, most recently involving the left upper back, removed inJ2016. 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 She uses sunscreen. She denies any new or changing lesions today. MEDICAL HISTORY 1. Left upper arm: History of malignant melanoma, Breslow Depth 0.9 mm, status post wide local excision in October 2009 at [facility]. Negative axillary lymph nodes. 2. Left distal arm: History of malignant melanoma in situ, status post wide local excision October 2009 at [facility] 3. Left trapezius: History of severely atypical nevus, removed in December 2009 4. Left upper back: History of severely atypical nevus removed in November 2016 5. Left upper chest: History of squamous cell carcinoma in situ, status post curettage and cryotherapy in 2009 FAMILY HISTORY Unknown history for melanoma as she was adopted OBJECTIVE PHYSICAL EXAMINATION General: Awake, alert, in no acute distress, and with appropriate affect. Eyes: No scleral injection or icterus. No eyelid abnormalities. Lymph: No lower extremity edema. No lymphadenopathy of head and neck, axilla, popliteal or inguinalareas. No hepatosplenomegaly. Skin: I have examined the scalp, face, neck, chest, abdomen, back, bilateral upper extremities, andbilateral lower extremities. My scribe (Fe) served as a plan nurse for the entirety of the exam. Examination of the left upper arm and left distal arm reveals no evidence for recurrence of melanoma x 2. Examination of the left trapezius and left upper back reveals no evidence for recurrence of severely atypical nevi x 2. Examination of the left upper chest reveals no evidence for recurrence of squamous cell carcinoma in situ. Examination of the face, trunk and extremities reveals multiple benign-appearing nevi, lentigines and seborrheic keratoses. Examination of the mid central forehead reveals a 3 x 2.5 mm uniformly colored brown nevus, compatible with a benign nevus. The patient states this lesion arose within the last year. Examination of the right mid lateral forehead reveals a 4 x 4 mm brown benign appearing nevus. The patient states this lesion arose within the last year. Examination of the right upper paraspinal back reveals a 5 x 3.5 mm brown nevus with focal darker pigmentation at the 7 o'clock position. Examination today reveals no suspicious lesions for skin cancer. ASSESSMENT / PLAN #1 Left upper arm: History of malignant melanoma, Breslow Depth 0.9 mm, status post wide local excision in October 2009 at [facility]. Negative axillary lymph nodes, no recurrence A skin cancer screening was performed as described above. No clinical evidence of local recurrence of melanoma today. Due to the history of melanoma, there is an increased risk of additional melanomain the future. Recommended monthly self- skin examinations to evaluate for new, changing, symptomatic, or otherwise worrisome lesions. Signs and symptoms of melanoma and non-melanoma skin cancer discussed. Photoprotection was recommended. Return to Dermatology in 12 months for a full skin exam or immediately if any new or changing lesions are noted. #2 Left distal arm: History of malignant melanoma in situ, status post wide local excision October 2009 at [facility], no recurrence A skin cancer screening was performed as described above. No clinical evidence of local recurrence of melanoma today. Due to the history of melanoma, there is an increased risk of additional melanomain the future. Recommended monthly self- skin examinations to evaluate for new, changing, symptomatic, or otherwise worrisome lesions. Signs and symptoms of melanoma and non-melanoma skin cancer discussed. Photoprotection was recommended. Return to Dermatology in 12 months for a full skin exam or immediately if any new or changing lesions are noted. #3 Left trapezius: History of severely atypical nevus, removed in December 2009, no recurrence No clinical evidence of local recurrence today. Recommended monthly self-skin examinations to evaluate for new, changing, symptomatic, or otherwise worrisome lesions. Signs and symptoms of skin cancer discussed. Photoprotection was recommended. Return to Dermatology in 12 months for a full skin exam or immediately if any new or changing lesions are noted. #4 Left upper back: History of severely atypical nevus removed in November 2016, no recurrence No clinical evidence of local recurrence today. Recommended monthly self-skin examinations to evaluate for new, changing, symptomatic, or otherwise worrisome lesions. Signs and symptoms of skin cancer discussed. Photoprotection was recommended. Return to Dermatology in 12 months for a full skin exam or immediately if any new or changing lesions are noted. #5 Face, trunk and extremities: Multiple nevi and lentigines The ABCDE criteria for melanoma was reviewed with the patient. None of the patient's nevi reach theclinical threshold for biopsy. I recommend continued sun protection, self-skin examinations, and observation. Should any of the patient's nevi change in size, color, texture, or shape or develop symptoms such as itching or bleeding, I recommend an immediate return visit for reassessment. Particularly, we will continue to clinically monitor the lesion(s) involving the right upper paraspinal back. Photographs taken today by Karrie Clemens RN with verbal patient consent. Follow up in 6 months for a recheck of the stated lesion(s) as well as a hair loss consultation. #6 Face, trunk and extremities: Seborrheic keratosis The benign nature of the skin lesion(s) was discussed with the patient. No treatment is required. Irecommend continued observation. Should this lesion change in size, color, texture, or shape or develop symptoms such as itching or bleeding, I recommend an immediate return visit for reassessment. #7 Left upper chest: History of squamous cell carcinoma in situ, status post curettage and cryotherapy in 2009 No clinical evidence of local recurrence today. Recommended monthly self-skin examinations to evaluate for new, changing, symptomatic, or otherwise worrisome lesions. Signs and symptoms of skin cancer discussed. Photoprotection was recommended. Return to Dermatology in 12 months for a full skin exam or immediately if any new or changing lesions are noted. PATIENT EDUCATION: Ready to learn. No apparent learning barriers were identified. Learning preferences include listening. Explained diagnosis and treatment plan; patient/guardian of patient expressed understanding of the content. By signing my name below, I, Fe Ford, attest that this documentation has been prepared underthe direction and in the presence of Bela Owen M.D. Electronically Signed: josue Hodge. 09/25/2023. 2:10 PM CDT. I, Bela Owen M.D., personally performed the services described in this documentation. All medical record entries made by the scribe were at my direction and in my presence. I have reviewed the chart and discharge instructions (if applicable) and agree that the record reflects my personal performance and is accurate and complete. Bela Owen M.D. Scribed for Bela Oewn M.D. by Fe Ford, on 09/25/2023, 2:33 PM CDT. documented in this encounter Plan of Treatment Scheduled Referrals Name Type Priority Associated Diagnoses Order Schedule Dermatology office visit (clinic) Outpatient Referral Routine Expected: 03/27/2024 (Approximate), Expires: 12/25/2024 documented as of this encounter Visit Diagnoses Diagnosis Nevi Multiple- Primary Keratosis Seborrheic Melanoma Personal History documented in this encounter
== END 2023-09-26 08:36 | disposition home or self-care (01) ==
LOC: NFLDREF 09-27 07:02
PROVIDERS: PCP Internal Medicine; Referring Provider Internal Medicine; Visit Provider Internal Medicine
DX: E11.29 Type 2 diabetes mellitus with other diabetic kidney complication (principal); R80.9 Proteinuria, unspecified; E78.5 Hyperlipidemia, unspecified; Z79.84 Long term (current) use of oral hypoglycemic drugs
CPT/HCPCS: 80053; 80061

== ENCOUNTER 2024-01-09 07:55 | Outpatient (CLI) | payer OTHER, SELFPAY ==
--- OUTSIDE RECORDS SUMMARY | 2024-01-12 06:11 | XMS_ITS | Referral Summary ---
Author Organization [facility] Address [address] [place] [address] Care Team Providers Care Hvac/R Service Technician Name Role Phone Unavailable Primary Care Provider Unavailabl e Source Comments Patient records contain information from all sites at [facility]. For routine questions regarding patient records, call [phone] during business hours, M-F 8:00 AM - 5:00 PM Central Time. Record requests for emergency care only can be directed to [phone] at any time.[facility] Allergies Active Allergy Reactions Criticality Noted Date Comments Amlodipine Edema (Reselect Reaction) 12/23/2009 Nifedipine Edema (Reselect Reaction) 12/23/2009 Medications Medication Sig Dispensed Refills Start Date End Date Status albuterol (PROVENTIL HFA,VENTOLIN HFA) 90 mcg/actuation inhaler Inhale 1 puff as needed. 12/23/2009 Active CALCIUM ORAL Take 2 tablets by mouth daily. 12/24/2009 Active cranberry fruit extract (CRANBERRY ORAL) Take 1 capsule by mouth daily. 12/24/2009 Active metFORMIN (GLUCOPHAGE) 1,000 mg tablet Take 1 tablet by mouth 2 (two) times a day. 12/23/2009 Active MULTIVITAMIN ORAL Take 1 tablet by mouth daily. 12/24/2009 Active losartan-hydroCHLOR Othiazide (HYZAAR) 100-25 mg per tablet 1 tablet [...] 27 mg iron tablet Take by mouth. Active dilTIAZem CD (Cardizem CD) 120 mg 24 hr capsule Take 1 capsule (120 mg total) by mouth daily. 90 capsule 3 10/05/2023 10/04/2024 Active Active Problems Problem Noted Date Diagnosed [...] drink = 0.6 oz pur e alcohol) [facility] Utilities Answer Date Recorded In the past 12 months has e [employer], gas, oil, or water [employer] threatened to shut off services in your [...] often do you attend chur ch or cheondoism services? More than 4 times per year 07/21/2021 Do you belong to any clubs o r organizations such as yarsani groups, unions, fraternal or athletic groups, or [...] and heating? Not hard at all 07/21/2021 [facility] [place] of Occupat ional Health - Occupational Stress [...] your living situation today? I have a [facility] place to live 09/18/2023 Education Answer Date Recorded What is the highest level of school you have completed or the highest degree you have received? Associate degree: occupational, technical, or vocational program 07/21/2021 Sex and Gender Information Value Date Recorded Sex Assigned at Female 07/21/2021 8:23 PM CHEMICAL MAKER Gender Identity Female 10/12/2017 1:06 PM CDT [...] on file Medical Devices Implanted Type Area Senior Javascript Developer Device Identifier Shelf Expiration Date Model / Serial / Lot Knee Implant Knee Implant Right: Knee
--- OUTSIDE RECORDS SUMMARY | 2024-01-12 06:11 | XMS_ITS ---
Author Organization [facility] Address [address] [place] [address] Care Team Providers Care Apparatus Lineman Name Role Phone Unavailable Unavailable Unavailable Surgery Details Not on file Complications Check Surgery Details section. Procedure Estimated Blood Loss Check Surgery Details section. Procedure Findings Check Surgery Details section. Procedure Specimens Taken Check Surgery Details section.
--- OUTSIDE RECORDS SUMMARY | 2024-01-12 06:11 | XMS_ITS | Clinical Summary ---
Author Organization [facility] Address [address] [place] [address] Care Team Providers Care Retail Bakery Manager Name Role Phone Unavailable Primary Care Provider Unavailabl e Source Comments Patient records contain information from all sites at [facility]. For routine questions regarding patient records, call [phone] during business hours, M-F 8:00 AM - 5:00 PM Central Time. Record requests for emergency care only can be directed to [phone] at any time.[facility] Allergies Active Allergy Reactions Criticality Noted [...] drink = 0.6 oz pur e alcohol) [facility] Utilities Answer Date Recorded In the past 12 months has e [employer], gas, oil, or water [employer] threatened to shut off services in your [...] often do you attend chur ch or restorationism services? More than 4 times per year 07/21/2021 Do you belong to any clubs o r organizations such as scientology groups, unions, fraternal or athletic groups, or [...] and heating? Not hard at all 07/21/2021 [facility] of Occupat ional Health - Occupational Stress [...] Assigned at Female 07/21/2021 8:23 PM MANAGER OF FINANCIAL REPORTING Gender Identity Female 10/12/2017 1:06 PM CDT [...] Depression Screening (Annual PHQ-2) 05/15/2023 COVID-19 Vaccine (6 - 2022-2 4 season) 2023 02/07/2023, 02/09/2022, 08/24/2021, Additional history exists Influenza Vaccine (#1) 2024 , 02/09/2022, 02/10/2021, Additional history exists Office Visit for Blood Press ure Check / Re-check 07/30/2024 07/31/2023 Colonoscopy 10/17/2026 10/17/2016 Colorectal Cancer Screening 10/17/2026 Hepatitis B Vaccines Completed 09/27/1999, 04/26/1999, 03/25/1999 Zoster Vaccines Completed 01/11/2019, 01/02/2018 Medical Devices Implanted Type Area Central Supply Clerk Device Identifier Shelf Expiration Date Model / Serial / Lot Knee Implant Knee Implant Right: Knee
--- OUTSIDE RECORDS SUMMARY | 2024-01-12 06:11 | XMS_ITS | Encounter Summary ---
Author Organization [facility] Address [address] [place] [address] Care Team Providers Care Direct Support Staff Member Name Role Phone Unavailable Primary Care Provider Unavailabl e Encounter Details Date Type Department Care Team (Late st Contact Info) Description 10/05/2023 Orders Only Division of Nephrology and Hypertension in [place], [place] [address] [place] [address] Shiva Ray Jr., D.O. [address] [place] [address] Social History Tobacco Use Types Packs/Day Years Used Date Smoking Tobacco: Never Smokeless Tobacco: Never Alcohol Use Standard Drinks/Week Comments Not Currently 0 (1 standard drink = 0.6 oz pur e alcohol) [facility] Utilities Answer Date Recorded In the past 12 months has [facility] [employer] gas, oil, or water [employer] threatened to shut off services in your [...] How often do you attend chur or shinto services? More than 4 times per year 07/21/2021 Do you belong to any clubs o r organizations such as zoroastrian groups, unions, fraternal or athletic groups, or [...] and heating? Not hard at all 07/21/2021 [facility] of Occupat ional Health - [...] your living situation today? I have a [facility] place to live 09/18/2023 Education Answer Date Recorded What is the highest level of school you have completed or the highest degree you have received? Associate degree: occupational, technical, or vocational program 07/21/2021 Sex and Gender Information Value Date Recorded Sex Assigned at Female 07/21/2021 8:23 PM MANAGER CASINO Gender Identity Female 10/12/2017 1:06 PM CDT Sexual Orientation Straight 10/12/2017 1: 10 PM CDT documented as of this encounter Plan of Treatment Not on file documented as of this encounter Visit Diagnoses Not on filedocumented in this encounter
--- OUTSIDE RECORDS SUMMARY | 2024-01-12 06:11 | XMS_ITS | Clinical Summary ---
Author Organization [facility] Address [place], [place] [address] Care Team Providers Care Business Partner Name Role Phone Radha Looney MD Primary Care Provider [phone] Allergies Active Allergy Reactions Criticality Noted Date [...] Arm; Wide Excision 10/13/2009 Dr Smith at [facility]. Onychomycosis 07/08/2009 Overview: Both big toenails involved: [...] Outcome GA Total Labor Labor/2nd/3rd Weight Sex Type Anes PTL Helen A1 A5 Name Clin Para Comments:Antoinette Para Comments:Prabhu SAB Last Filed Vital Signs Vital Sign Reading [...] HYPERLIPIDEMIA MIXED SCAN-MAMMOGRAPHY REPORT 03/25/2009 12:00 AM DIRECTOR ADULT from Last 3 Months or Most Recently Relevant to Health Maintenance Results * COLONOSCOPY DIAGNOSTIC (10/17/2016 12:00 AM CDT) Jeffery Burns MD GI PROCEDURE ORD * (ABNORMAL) LIPID PANEL W REFLEX MEASURED LDL (12/09/2009 7:36 AM CDT) CHOLESTEROL,TOTAL 155 110 - 199 mg/dL [facility] TRIGLYCERIDES 151(H) <150 mg/dL [facility] HDL CHOLESTEROL 42 >40 mg/dL [facility] CHOL/HDL RATIO 3.69 <4.51 [facility] LDL CHOLESTEROL 83 <131 mg/dL [facility] PATIENT STATUS Fasting [facility] Blood specimen (specimen) BLOOD SPECIMEN / Unknown 12/09/2009 7:36 AM CDT 12/09/2009 7:30 AM CDT Girish Lemus MD CHEMISTRY Performing Organization Address City/State/[facility] Co de Phone Number [facility] [address] [place] [address] * SCAN-MAMMOGRAPHY REPORT (03/25/2009 12:00 AM DIRECTOR ADULT) Anatomical Region Laterality Modality Other Narrative Procedure Note Scanner - 03/25/2009 12:00 AM DIRECTOR ADULT Scanner OTHER from Last 3 Months or Most Recently Relevant to Health Maintenance Care Teams Business Partner Relationship Specialty Start Date End Date Radha Looney MD PCP - General Internal Medicine 04/26/11
== END 2024-01-09 07:56 | disposition home or self-care (01) ==
LOC: NFLDREF 01-12 06:09
PROVIDERS: PCP Internal Medicine; Referring Provider Internal Medicine; Visit Provider Internal Medicine Nephrology
DX: E11.22 Type 2 diabetes mellitus with diabetic chronic kidney disease (principal); I12.9 Hypertensive chronic kidney disease with stage 1 through stage 4 chronic kidney disease, or unspecified chronic kidney disease; N18.32 Chronic kidney disease, stage 3b; D64.9 Anemia, unspecified; E78.5 Hyperlipidemia, unspecified; Z13.29 Encounter for screening for other suspected endocrine disorder
CPT/HCPCS: 80061; 80069; 82043; 82570; 82728; 83540; 83550; 84443; 84450; 84460; 84550; 86140; 87086; 87186; 87205

== ENCOUNTER 2024-04-23 08:05 | Outpatient (CLI) | payer OTHER, SELFPAY | END 2024-04-23 08:06 | disposition home or self-care (01) | LOC: NFLDREF 04-24 09:59 | PROVIDERS: PCP Internal Medicine; Referring Provider Internal Medicine; Visit Provider Internal Medicine | DX: E11.29 Type 2 diabetes mellitus with other diabetic kidney complication (principal); R80.9 Proteinuria, unspecified; E78.5 Hyperlipidemia, unspecified | CPT/HCPCS: 80053; 80061 ==

== ENCOUNTER 2024-07-25 08:16 | Outpatient (CLI) | payer OTHER, SELFPAY | END 2024-07-25 08:17 | disposition home or self-care (01) | LOC: NFLDREF 07-29 01:20 | PROVIDERS: PCP Internal Medicine; Referring Provider Internal Medicine; Visit Provider Internal Medicine Nephrology | DX: E11.22 Type 2 diabetes mellitus with diabetic chronic kidney disease (principal); E11.29 Type 2 diabetes mellitus with other diabetic kidney complication; I12.9 Hypertensive chronic kidney disease with stage 1 through stage 4 chronic kidney disease, or unspecified chronic kidney disease; N18.32 Chronic kidney disease, stage 3b; R80.9 Proteinuria, unspecified; E78.5 Hyperlipidemia, unspecified; Z13.0 Encounter for screening for diseases of the blood and blood-forming organs and certain disorders involving the immune mechanism | CPT/HCPCS: 80061; 80069; 82043; 82570; 82728; 83540; 83550; 83970; 84450; 84460; 84550; 87086; 87186 ==

== ENCOUNTER 2024-08-13 08:03 | Outpatient (CLI) | payer OTHER, SELFPAY ==
--- NOTE | 2024-08-13 08:15 | CRLHL7_ITS ---
For Patients: As a result of the Century Cures Act, medical imaging exams and procedure reports are released immediately into your electronic medical record. You may view this report before your referring provider. If you have questions, please contact your health care provider. BILATERAL SCREENING MAMMOGRAM WITH COMPUTER-AIDED DETECTION AND TOMOSYNTHESIS TECHNIQUE: CC and MLO views were obtained. These mammographic images have been obtained using full-field digital technique. These mammographic images were interpreted with the benefit of computer-aided detection. Breast Tomosynthesis was used in this interpretation. COMPARISON FILM: 07/25/23, 07/19/22, 07/13/21. FINDINGS: There are scattered areas of fibroglandular density. IMPRESSION: There is no radiographic evidence for malignancy. ASSESSMENT: BI-RADS Category 1: Negative RECOMMENDATION: Routine screening mammogram in 1 year. A lay language report of this examination will be provided to the patient. Rubin Lui M.D. Diagnostic Radiologist [email or web address] SP/Dictated by: Rubin Lui MD @ 08/14/2024 9:15:00 AM (Electronically Signed)
== END 2024-08-13 08:04 | disposition home or self-care (01) ==
LOC: MAMMO 08:03
PROVIDERS: PCP Internal Medicine; Visit Provider Internal Medicine
DX: Z12.31 Encounter for screening mammogram for malignant neoplasm of breast (principal)
CPT/HCPCS: 77063; 77067

== ENCOUNTER 2025-01-14 08:13 | Outpatient (CLI) | payer OTHER, SELFPAY | END 2025-01-14 08:14 | disposition home or self-care (01) | LOC: NFLDREF 01-15 08:09 | PROVIDERS: PCP Internal Medicine; Referring Provider Internal Medicine; Visit Provider Internal Medicine Nephrology | DX: N18.30 Chronic kidney disease, stage 3 unspecified (principal); I12.9 Hypertensive chronic kidney disease with stage 1 through stage 4 chronic kidney disease, or unspecified chronic kidney disease; E11.22 Type 2 diabetes mellitus with diabetic chronic kidney disease; R80.9 Proteinuria, unspecified; D64.9 Anemia, unspecified; Z79.4 Long term (current) use of insulin | CPT/HCPCS: 80061; 80069; 82043; 82570; 82607; 82728; 82746; 83540; 83550; 83970; 84550; 86140; 87086 ==